=== PATIENT | male | born 1995 | race Two or more races ===

== ENCOUNTER 2020-08-14 18:56 | Emergency (ER) | payer OTHER ==
[2020-08-14] MEDS ORDERED: Sodium Chloride 0.9% 10 ML Syringe FLUSH PRN (19:12)
[2020-08-14] MEDS ORDERED: HYDROmorphone 1 MG/ML Syringe IVPUSH ONE (19:12)
[2020-08-14] MEDS ORDERED: Sodium Chloride 0.9% 2.5 ML Syringe FLUSH PRN (19:12)
[2020-08-14] MEDS ORDERED: Ondansetron 4 MG/2 ML SDV IVPUSH ONE (19:12)
[2020-08-14] MEDS ORDERED: ceFAZolin 1 GM in Premix Bag 1 BAG IV ONE (19:13)
[2020-08-14] MEDS ORDERED: Bupivacaine 0.5% 10 ML SDV INJECT ONE (19:14)
--- NOTE | 2020-08-14 19:18 | EDM.PDOC ---
ED HPI GENERAL MEDICAL PROBLEM - General Chief Complaint: Upper Extremity Injury/Pain Stated Complaint: LT FINGERS INJURY, BONE STICKING OUT Time Seen by Provider: 08/14/20 19:07 - History of Present Illness INITIAL COMMENTS - FREE TEXT/NARRATIVE: History of present illness: [] The patient caught his left hand between a board and a rail. He smashed his left hand. It happened at approximately 5:55 PM. His nondominant left hand has injury to the third and fourth digits, long finger and ring finger. Pain is excruciating. Touching it makes it worse. The pain is sharp. The patient enjoys good health. He does not take any medicine. He does smoke. His last tetanus shot was less than 10 years. Review of systems: As per history of present illness and below otherwise all systems reviewed and negative. Past medical history: As per history of present illness and as reviewed below otherwise noncontributory. Surgical history: As per history of present illness and as reviewed below otherwise noncontributory. Social history: No reported history of drug or alcohol abuse. Family history: As per history of present illness and as reviewed below otherwise noncontributory. Physical exam: Constitutional - well developed, well-nourished and in no acute distress HEENT - normocephalic, no evidence of trauma - external nose and mouth normal - no mass in neck and no JVD - mucosae moist EYES - full EOM, PERRL, no icterus - no evidence of inflammation, injection, or drainage Respiratory - no respiratory distress, equal bilateral expansion, lungs clear to auscultation and no abnormal lung sounds Cardiovascular - Regular Rhythm with S1 and S2 appreciated and no murmur, gallop or rub. GI - abdomen soft without distension or organomegaly - normal bowel sounds - no guard or rebound Musculoskeletal long finger and ring finger of the left hand have deformity of the distal segment. Otherwise no gross deformity of long bones or joints - no tenderness, swelling or edema Neurologic - Alert and oriented times four - CN II-XII grossly intact - motor sensory and coordination symmetrically normal Psychiatric - appropriate mood and affect with normal thought content Hematologic - No petechiae or purpura - mucosa appropriate color and sclera not pale - normal nail bed color and refill Integument -skin and nails of the tip of the left hands long and ring fingers are disrupted and only held in place by the dorsal skin segment alongside him with the nailbed. The nail of the third digit is a avulsed. Otherwise no rash or evidence of trauma - normal turgor Diagnostics: [] Therapeutics: [] Impression: [] Plan: [] Definitive disposition and diagnosis as appropriate pending reevaluation and review of above. Left digits Pain Score (Numeric/FACES): 10 - Related Data Allergies Allergy/AdvReac Type Severity Reaction Status Date / Time No Known Allergies Allergy Verified 08/14/20 19:08 Home Meds: Home Meds Acetaminophen/HYDROcodone [[place] 325-10 MG] 1 tab PO Q4H PRN #20 tab 08/14/20 [Rx] cephALEXin [Keflex] 500 mg PO Q8H #21 cap 08/14/20 [Rx] Past Medical History - Infectious Disease History Infectious Disease History: Reports: None Social & Family History - Family History Family Medical History: No Pertinent Family History - Tobacco Use Tobacco Use Status *Q: Never Tobacco User - Caffeine Use Caffeine Use: Reports: None - Recreational Drug Use Recreational Drug Use: No Review of Systems - Review of Systems Review Of Systems: Comprehensive ROS is negative, except as noted in HPI. ED EXAM, GENERAL - Physical Exam Exam: See Below Free Text/Narrative:: My physical exam is in the HPI ED TRAUMA EXTREMITY PROCEDURES - Laceration/Wound Repair Left Hand Lac/Wound Length In cm: 3 Appearance: Subcutaneous Distal NVT: Neuro & Vascular Intact Anesthetic Type: Digital Local Anesthesia - Lidocaine (Xylocaine): 1% Plain Local Anesthesia - Bupivicaine (Marcaine): 0.5% Plain Local Anesthetic Volume: Other (7 cc) Skin Prep: Providone-Iodine (Betadine) Saline Irrigation (cc's): 10 Exploration/Debridement/Repair: Wound Explored Closed With: Sutures Suture Size: 4-0 # of Sutures: 8 Progress/Comments: It appears the viability of the distal tips of these fingers is in question. The hand surgeon wanted the bone covered with scan and then he would revise. I cleaned the wounds and repositioned the skin on the distal segment so that the bones are well covered. These were approximated with simple interrupted sutures. The patient tolerated procedure well. Course - Vital Signs Text/Narrative:: Last p.o. was at noon for solids and 5:30 PM for liquids X-ray revealed bone fragments in the distal segments of soft tissue in both digits. The fractured bone in the tuft and the fourth digit is longer than the soft tissue. The fifth is probably able to be closed primarily. Discussed with Dr. Cagle the hand surgeon and [place]. He said if I can obtain skin closure he would revise it in the clinic. At 2015 hrs. a digital block was done after sterile prep with Betadine extensively after the hand had been washed well. Bupivacaine and lidocaine 0.5% and 1% respectively without epinephrine were used for a total of 12 mL in the digital block of these 2 digits. Last Recorded V/S: Last Vital Signs Temp 36.2 C 08/14/20 19:46 Pulse 102 H 08/14/20 19:46 Resp 18 08/14/20 19:46 BP 145/93 H 08/14/20 19:46 Pulse Ox 97 08/14/20 19:46 - Orders/Labs/Meds Orders: Active Orders 24 hr Category Date Time Status Communication Order [RC] STAT Care 08/14/20 19:15 Active Vaccines to be Administered [RC] PER UNIT ROUTINE Care 08/14/20 19:38 Active Sodium Chloride 0.9% [Saline Flush] Med 08/14/20 19:12 Active 10 ml FLUSH ASDIRECTED PRN Sodium Chloride 0.9% [Saline Flush] Med 08/14/20 19:12 Active 2.5 ml FLUSH ASDIRECTED PRN Saline Lock Insert [OM.PC] Stat Oth 08/14/20 19:12 Ordered Medication Orders Sodium Chloride (Sodium Chloride 0.9% 10 Ml Syringe) 10 ml FLUSH ASDIRECTED PRN PRN Reason: Keep Vein Open Sodium Chloride (Sodium Chloride 0.9% 2.5 Ml Syringe) 2.5 ml FLUSH ASDIRECTED PRN PRN Reason: Keep Vein Open Labs: Laboratory Tests 08/14/20 08/14/20 Range/Units 19:13 19:13 WBC 8.43 (4.0-11.0) K/uL RBC 4.60 (4.50-5.90) M/uL Hgb 15.2 (13.0-17.0) g/dL Hct 43.7 (38.0-50.0) % MCV 95.0 (80.0-98.0) fL MCH 33.0 H (27.0-32.0) pg MCHC 34.8 (31.0-37.0) g/dL RDW Std Deviation 45.0 (28.0-62.0) fl RDW Coeff of Beau 13 (11.0-15.0) % Plt Count 215 (150-400) K/uL MPV 10.40 (7.40-12.00) fL Neut % (Auto) 54.2 (48.0-80.0) % Lymph % (Auto) 37.8 (16.0-40.0) % [place] % (Auto) 6.6 (0.0-15.0) % Eos % (Auto) 1.2 (0.0-7.0) % Baso % (Auto) 0.2 (0.0-1.5) % Neut # (Auto) 4.6 (1.4-5.7) K/uL Lymph # (Auto) 3.2 H (0.6-2.4) K/uL [place] # (Auto) 0.6 (0.0-0.8) K/uL Eos # (Auto) 0.1 (0.0-0.7) K/uL Baso # (Auto) 0.0 (0.0-0.1) K/uL Nucleated RBC % 0.0 /100WBC Nucleated RBCs # 0 K/uL Sodium 139 (136-148) mmol/L Potassium 3.3 L (3.5-5.1) mmol/L Chloride 104 (98-107) mmol/L Carbon Dioxide 26.5 (21.0-32.0) mmol/L BUN 21 H (7.0-18.0) mg/dL Creatinine 1.2 (0.8-1.3) mg/dL Est Cr Clr Drug Dosing 91.35 mL/min Estimated GFR (MDRD) > 60.0 ml/min Glucose 102 (74-106) mg/dL Calcium 9.1 (8.5-10.1) mg/dL Meds: Medications Generic Name Dose Route Start Last Admin Trade Name Freq PRN Reason Stop Dose Admin Sodium Chloride 10 ml 08/14/20 19:12 Sodium Chloride 0.9% 10 Ml Syringe FLUSH ASDIRECTED PRN Keep Vein Open Sodium Chloride 2.5 ml 08/14/20 19:12 Sodium Chloride 0.9% 2.5 Ml Syringe FLUSH ASDIRECTED PRN Keep Vein Open Discontinued Medications Generic Name Dose Route Start Last Admin Trade Name Debi PRN Reason Stop Dose Admin Bacitracin 1 dose 08/14/20 21:02 Bacitracin Oint 1 Gm U/D Packet TOP 08/14/20 21:03 ONETIME ONE Bupivacaine HCl 5 ml 08/14/20 19:14 08/14/20 19:30 Bupivacaine 0.5% 10 Ml Sdv INJECT 08/14/20 19:15 5 ml ONETIME ONE Administration Diphtheria/Tetanus/Acell Pertussis 0.5 ml 08/14/20 19:37 08/14/20 19:43 Diphtheria,Pertussis(Acell),Tetanus Vaccine 0.5 Ml Syringe IM 08/14/20 19:38 0.5 ml .ONCE ONE Administration Hydromorphone HCl 1 mg 08/14/20 19:12 08/14/20 19:21 Hydromorphone 1 Mg/Ml Syringe IVPUSH 08/14/20 19:13 1 mg ONETIME ONE Administration Cefazolin Sodium/Dextrose 1 gm 50 mls @ 100 mls/hr 08/14/20 19:13 08/14/20 19:21 / Premix IV 08/14/20 19:42 100 mls/hr ONETIME ONE Administration Lidocaine 5 ml 08/14/20 20:27 Lidocaine 2% 5 Ml Sdv INJECT 08/14/20 20:28 ONETIME ONE Lidocaine HCl 5 ml 08/14/20 19:13 08/14/20 19:30 Lidocaine 1% 5 Ml Sdv INJECT 08/14/20 19:14 5 ml ONETIME ONE Administration Lidocaine HCl Confirm 08/14/20 20:11 Lidocaine 1% 5 Ml Sdv Administered 08/14/20 20:12 Dose 5 ml .ROUTE .STK-MED ONE Ondansetron HCl 4 mg 08/14/20 19:12 08/14/20 19:21 Ondansetron 4 Mg/2 Ml Sdv IVPUSH 08/14/20 19:13 4 mg ONETIME ONE Administration Departure - Departure Time of Disposition: 21:03 Disposition: Home, Self-Care 01 Condition: Good Clinical Impression: 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 Cagle. Call tomorrow early. [address] [place] [address] [facility] [address], [address] [place] [address] The following information is given to patients seen in the emergency department who are being discharged to home. This information is to outline your options for follow-up care. We provide all patients seen in our emergency department with a follow-up referral. The need for follow-up, as well as the timing and circumstances, are variable depending upon the specifics of your emergency department visit. If you don't have a primary care physician on staff, we will provide you with a referral. We always advise you to contact your personal physician following an emergency department visit to inform them of the circumstance of the visit and for follow-up with them and/or the need for any referrals to a consulting specialist. The emergency department will also refer you to a specialist when appropriate. This referral assures that you have the opportunity for follow-up care with a specialist. All of these measure are taken in an effort to provide you with optimal care, which includes your follow-up. Under all circumstances we always encourage you to contact your private physician who remains a resource for coordinating your care. When calling for follow-up care, please make the office aware that this follow-up is from your recent emergency room visit. If for any reason you are refused follow-up, please contact the [facility] Emergency Department at and asked to speak to the emergency department charge nurse. Sepsis Event Note (ED) - Evaluation Sepsis Screening Result: No Definite Risk - Focused Exam Vital Signs: Vital Signs Temp Pulse Resp BP Pulse Ox 08/14/20 19:46 36.2 C 102 H 18 145/93 H 97 08/14/20 19:09 36.4 C 116 H 18 146/89 H 97 - My Orders Last 24 Hours: My Active Orders 08/14/20 19:12 Sodium Chloride 0.9% [Saline Flush] 10 ml FLUSH ASDIRECTED PRN Sodium Chloride 0.9% [Saline Flush] 2.5 ml FLUSH ASDIRECTED PRN Saline Lock Insert [OM.PC] Stat 08/14/20 19:15 Communication Order [RC] STAT 08/14/20 19:38 Vaccines to be Administered [RC] PER UNIT ROUTINE - Assessment/Plan Last 24 Hours: My Active Orders 08/14/20 19:12 Sodium Chloride 0.9% [Saline Flush] 10 ml FLUSH ASDIRECTED PRN Sodium Chloride 0.9% [Saline Flush] 2.5 ml FLUSH ASDIRECTED PRN Saline Lock Insert [OM.PC] Stat 08/14/20 19:15 Communication Order [RC] STAT 08/14/20 19:38 Vaccines to be Administered [RC] PER UNIT ROUTINE
[2020-08-14] MEDS ORDERED: Diphtheria,Pertussis(Acell),Tetanus Vaccine 0.5 ML Syringe IM ONE (19:37)
[2020-08-14 19:55] LABS: BLOOD UREA NITROGEN,BUN 21 mg/dL (7.0-18.0); CARBON DIOXIDE,CO2 26.5 mmol/L (21.0-32.0); CHLORIDE,CL 104 mmol/L (98-107); GLUCOSE RANDOM 102 mg/dL (74-106); POTASSIUM,K 3.3 mmol/L (3.5-5.1); SODIUM,NA 139 mmol/L (136-148)
--- NOTE | 2020-08-14 20:02 | CR ---
INDICATION: Crush injury COMPARISON: none TECHNIQUE: Three-view left hand FINDINGS: There is soft tissue laceration and comminuted fractures involving the susy of the 3rd and 4th distal phalanges. The larger distal 4th finger fragment is displaced in a palmar direction. There is air within the lacerated soft tissues. The DIP and PIP joints remain intact. No fractures are identified within the metacarpals. IMPRESSION: Soft tissue laceration and crush injury with underlying comminuted fractures of the susy the 3rd and 4th distal phalanges. Dictated by Jerson Lozoya MD @ Aug 14 2020 7:58PM Signed by Dr. Jerson Lozoya @ Aug 14 2020 8:01PM
[2020-08-14] MEDS ORDERED: Lidocaine 2% 5 ML SDV INJECT ONE (20:27)
[2020-08-14] MEDS ORDERED: Bacitracin Oint 1 GM U/D Packet TOP ONE (21:02)
[2020-08-14] MEDS ORDERED: Bacitracin Oint 1 GM U/D Packet ONE (21:03)
== END 2020-08-14 21:30 | disposition home or self-care (01) ==
LOC: MW.ED 18:56
DX: S68.625A Partial traumatic transphalangeal amputation of left ring finger, initial encounter (principal); Z23 Encounter for immunization; W23.0XXA Caught, crushed, jammed, or pinched between moving objects, initial encounter
CPT/HCPCS: 12002; 73130; 80048; 85025; 90471; 90715; 96365; 96375; 99283; J0690; J1170; J2405; J3490

== ENCOUNTER 2021-09-16 13:57 | Emergency (ER) | payer OTHER ==
[2021-09-16] MEDS ORDERED: Tetracaine HCl/PF 0.5% 4 ML Bottle EYEBOTH ONE (14:00)
[2021-09-16] MEDS ORDERED: Erythromycin Base 0.5% Ophth Oint 1 GM Tube EYELF ONE (14:36)
== END 2021-09-16 14:55 | disposition home or self-care (01) ==
LOC: MW.ED 13:57
DX: T54.2X1A Toxic effect of corrosive acids and acid-like substances, accidental (unintentional), initial encounter (principal); T26.92XA Corrosion of left eye and adnexa, part unspecified, initial encounter
CPT/HCPCS: 99283; A9270